=== PATIENT | female | born 1940 | race Caucasian/White ===

== ENCOUNTER 2019-05-07 07:37 | Emergency (ER) | payer MEDICARE ==
[~2019-05-07] VITALS: Ht 162.6 cm; Wt 54.4 kg
[2019-05-07 08:35] LABS: INFLUENZA A ANTIGEN Negative (Negative); INFLUENZA B ANTIGEN Negative (Negative)
[2019-05-07] MEDS ORDERED: VENTOLIN HFA 1818 GM INH (08:39)
[2019-05-07] MEDS ORDERED: LEVAQUIN 750 M750 MG PO (08:39)
[2019-05-07 08:51] VITALS: BP 166/81
== END 2019-05-07 08:51 | disposition home or self-care (01) ==
LOC: M.ERS 07:37
PROVIDERS: Emergency Medicine Emergency Medical Services
DX: J18.9 Pneumonia, unspecified organism (principal); Z88.1 Allergy status to other antibiotic agents